=== PATIENT | female | born 1995 | race Caucasian/White ===

== ENCOUNTER 2020-02-15 22:26 | Emergency (ER) | payer OTHER ==
[~2020-02-15] VITALS: Ht 170.2 cm; Wt 49.4 kg
[2020-02-15 22:39] VITALS: Ht 170.2 cm; Wt 49.4 kg
[2020-02-15 23:24] VITALS: BP 116/78
== END 2020-02-15 23:24 | disposition home or self-care (01) ==
LOC: ED 22:26
DX: S90.561A Insect bite (nonvenomous), right ankle, initial encounter (principal); L03.115 Cellulitis of right lower limb; W57.XXXA Bitten or stung by nonvenomous insect and other nonvenomous arthropods, initial encounter; Y93.89 Activity, other specified; Y92.89 Other specified places as the place of occurrence of the external cause; Y99.8 Other external cause status